=== PATIENT | male | born 1965 | race Caucasian/White ===

== ENCOUNTER 2017-05-03 16:39 | Emergency (ER) | payer OTHER ==
[~2017-05-03] VITALS: Ht 180.3 cm; Wt 81.6 kg
[~2017-05-03 16:39] MED LIST: ATIVAN0.5 MG BC; ATIVAN0.5 MG ORAL; ATIVAN1 MG ORAL; DEPAKOTE PO; DEPAKOTE125 MG PO; KEFLEX500 MG ORAL; LITHIUM CARBON150 MG ORAL; MORPHINE IR15 MG ORAL; MORPHINE SULFATE MC; NITROGLYCERIN0.4 MG SL; NKM; PEPCID20 MG ORAL; PROZAC10 MG ORAL; PROZAC20 MG PO; PROZAC40 MG ORAL; PROZAC40 MG PO; UNOBMED; ZOFRAN ODT4 MG ORAL; ativan; lithium; morphine
[2017-05-03 18:17] VITALS: BP 146/82
[2017-05-03 19:15] VITALS: BP 146/82
--- NOTE | 2017-05-03 20:55 | Emergency Room Report ---
History of Present Illness General Chief Complaint: Pain Source: Patient Present Illness HPI This patient complains of generalized body pain. The patient is brought in by EMS on the street and is homeless. He has no other complaints. Allergies: Coded Allergies: HALOPERIDOL (Unverified Allergy, Unknown, 12/19/14) Patient History Past Medical History: see triage record, HTN, DE, CAD, asthma, other - ETOH abuse Social History: Reports: alcohol use Reviewed Nursing Documentation: PMH: Agreed, PSxH: Agreed Nursing Documentation-PMH Hx Cardiac Problems: Yes - CAD DE Hx Hypertension: Yes Hx Asthma: Yes Hx Cancer: No Hx Neurological Problems: Yes - alcohol abuse Hx Cerebrovascular Accident: Yes Hx Seizures: Yes Review of Systems All Other Systems: negative except mentioned in HPI Physical Exam Vital Signs Date Time Temp Pulse Resp B/P Pulse Ox O2 Delivery O2 Flow Rate FiO2 05/03/17 16:57 98.2 80 20 146/82 98 Room Air Sp02 EP Interpretation: reviewed, normal General Appearance: no apparent distress, alert, GCS 15, non-toxic Head: normocephalic, atraumatic Eyes: bilateral eye PERRL, bilateral eye normal inspection ENT: hearing grossly normal, normal pharynx, no angioedema, normal voice Neck: full range of motion, supple/symm/no masses Respiratory: chest non-tender, lungs clear, normal breath sounds, speaking full sentences Cardiovascular #1: regular rate, rhythm, no edema Gastrointestinal: normal bowel sounds, non tender, soft, non-distended, no guarding, no rebound Rectal: deferred Musculoskeletal: back normal, gait/station normal, normal range of motion, non- tender Neurologic: alert, oriented x3, responsive, motor strength/tone normal, sensory intact, speech normal Psychiatric: judgement/insight normal, memory normal, mood/affect normal, no suicidal/homicidal ideation Skin: normal color, no rash, warm/dry, well hydrated Medical Decision Making Diagnostic Impression: Primary Impression: Pain Additional Impression: Alcohol abuse ER Course This patient got a sandwich and then eloped. Last Vital Signs Date Time Temp Pulse Resp B/P Pulse Ox O2 Delivery O2 Flow Rate FiO2 05/03/17 19:15 98.2 69 20 146/82 98 Room Air Disposition: ELOPED Condition: Stable Referrals: [facility],REFERRING (PCP) ZOILA SELLERS D.O. May 03, 2017 20:55
== END 2017-05-03 19:30 | disposition left against medical advice (07) ==
LOC: EDBD 16:39 → EMR 19:24
DX: R52 Pain, unspecified (principal); F10.10 Alcohol abuse, uncomplicated; I25.10 Atherosclerotic heart disease of native coronary artery without angina pectoris; I25.2 Old myocardial infarction; I10 Essential (primary) hypertension; J45.909 Unspecified asthma, uncomplicated; Z86.73 Personal history of transient ischemic attack (TIA), and cerebral infarction without residual deficits; Z88.8 Allergy status to other drugs, medicaments and biological substances; Z59.0 Homelessness; Z53.21 Procedure and treatment not carried out due to patient leaving prior to being seen by health care provider
CPT/HCPCS: 99283

== ENCOUNTER 2017-05-23 15:02 | Emergency (ER) | payer OTHER ==
[~2017-05-23] VITALS: Ht 172.7 cm; Wt 81.6 kg
--- NOTE | 2017-05-23 15:02 | Emergency Room Report ---
History of Present Illness General Source: Patient, EMS Present Illness HPI 51YOM BIBEMS, found sleeping on street, bystanders called. Intoxicated, unsteady on feet Patient's last drink today Trying to quit drinking No signs of trauma HPI otherwise limited by intoxication Allergies: Coded Allergies: ACETAMINOPHEN (Verified Allergy, Unknown, 05/23/17) HALOPERIDOL (Unverified Allergy, Unknown, 12/19/14) Patient History Past Medical History: none Past Surgical History: none Pertinent Family History: none Social History: Reports: alcohol use Review of Systems All Other Systems: negative except mentioned in HPI Physical Exam Sp02 EP Interpretation: reviewed, normal General Appearance: normal inspection, well appearing, no apparent distress, alert, GCS 15, non-toxic, other - disheveled, +AB Head: normocephalic, atraumatic Eyes: bilateral eye EOMI, bilateral eye PERRL ENT: normal ENT inspection, hearing grossly normal, normal voice Neck: normal inspection, full range of motion, supple, no bony tend Respiratory: normal inspection, lungs clear, normal breath sounds, no respiratory distress, no retraction, no wheezing Gastrointestinal: normal inspection, normal bowel sounds, non tender, soft, no guarding, no hernia Genitourinary: no CVA tenderness Musculoskeletal: normal inspection, back normal, normal range of motion, Carolyn' s Sign negative Neurologic: normal inspection, alert, oriented x3, responsive, 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 Afebrile Just drank today Not withdrawing Slept in ER Ambulated when sober Asked for and received food DC home Status: improved Disposition: HOME, SELF-CARE DAYAMI JOHNSTON M.D. May 23, 2017 15:02
[2017-05-23 15:09] VITALS: BP 117/82
[2017-05-23 17:04] VITALS: BP 121/78
[2017-05-23 17:33] VITALS: BP 121/78
== END 2017-05-23 17:37 | disposition home or self-care (01) ==
LOC: EDBD 15:02 → EMR 15:31
DX: F10.920 Alcohol use, unspecified with intoxication, uncomplicated (principal); Z88.6 Allergy status to analgesic agent; Z88.8 Allergy status to other drugs, medicaments and biological substances
CPT/HCPCS: 99283

== ENCOUNTER 2017-07-06 18:33 | Emergency (ER) | payer OTHER ==
[~2017-07-06] VITALS: Ht 180.3 cm; Wt 86.2 kg
[2017-07-06 19:20] VITALS: BP 114/71
[2017-07-06 21:45] VITALS: BP 117/72
--- NOTE | 2017-07-06 21:52 | Emergency Room Report ---
History of Present Illness General Chief Complaint: Chest Pain Source: Patient, EMS Present Illness HPI The patient is a 51-year-old male brought in by EMS for presumed alcohol intoxication. The patient was found sleeping and states that he complained of chest pain after being woken up by paramedics. Pain is a 10 out of 10 dull ache to the mid chest and does not radiate. No known provoking relieving factors. He does to drinking alcohol but declines to state the quantity. He denies any other symptoms including nausea, vomiting, fever, chills Allergies: Coded Allergies: ACETAMINOPHEN (Verified Allergy, Unknown, 05/23/17) HALOPERIDOL (Unverified Allergy, Unknown, 12/19/14) Patient History Past Medical History: see triage record Pertinent Family History: none Reviewed Nursing Documentation: PMH: Agreed, PSxH: Agreed Nursing Documentation-PMH Past Medical History: No History, Except For Hx Cardiac Problems: No Hx Hypertension: No - HEP A Hx Pacemaker: No Hx Asthma: No Hx COPD: No Hx Diabetes: No Hx Cancer: No Hx Gastrointestinal Problems: No - etoh abuse Hx Dialysis: No Hx Neurological Problems: No Hx Cerebrovascular Accident: No Hx Seizures: No Review of Systems All Other Systems: negative except mentioned in HPI Physical Exam Vital Signs Date Time Temp Pulse Resp B/P (MAP) Pulse Ox O2 Delivery O2 Flow Rate FiO2 07/06/17 18:29 97.9 92 18 114/71 94 Room Air Sp02 EP Interpretation: reviewed, normal General Appearance: no apparent distress, GCS 15, non-toxic Head: normocephalic, atraumatic Eyes: bilateral eye normal inspection, bilateral eye PERRL ENT: hearing grossly normal, normal pharynx, no angioedema, normal voice Neck: full range of motion, supple/symm/no masses Respiratory: chest non-tender, lungs clear, normal breath sounds, speaking full sentences Gastrointestinal: normal bowel sounds, non tender, soft, non-distended, no guarding, no rebound Genitourinary: normal inspection, no CVA tenderness Neurologic: alert, responsive, sensory intact Psychiatric: no suicidal/homicidal ideation Skin: normal color, no rash, warm/dry, well hydrated Medical Decision Making PA Attestation Dr. Spann is my supervising physician. Patient management was discussed with my supervising physician Diagnostic Impression: Primary Impression: Alcohol intoxication Qualified Codes: F10.920 - Alcohol use, unspecified with intoxication, uncomplicated ER Course The patient is a 51-year-old male brought in by EMS for presumed alcohol intoxication DDx considered but not limited to: acute alcohol intoxication, hepatic encephalopathy, drug overdose, hypoglycemia, psychosis, ACS Physical exam: No apparent distress. Patient is lethargic. Head is normocephalic atraumatic. Pupils are equally round and reactive to light The patient is arousable by touch or name. Lungs are clear to auscultation bilaterally. No abnormal tenderness. Abdomen is soft. Otherwise exam is unremarkable The patient is given time to rest in the emergency department. EKG shows NSR at 98 BPM. Compared to old EKG from 03/2016 and shows no acute changes. The patient is able to ambulate well and is asking to leave at this time. The patient is alert and oriented. The patient be discharged home and given ER precautions. Patient was given advice on alcohol addiction EKG Diagnostic Results EP Interpretation: NSR Rate: normal - 98 Rhythm: NSR ST Segments: no acute changes PA Scribe Text EKG was reviewed and read with my supervising physician. EKG from March 2016 compared with to acute changes. Normal rate and rhythm. No acute findings. Last Vital Signs Date Time Temp Pulse Resp B/P (MAP) Pulse Ox O2 Delivery O2 Flow Rate FiO2 07/06/17 18:29 97.9 92 18 114/71 94 Room Air Status: improved Disposition: HOME, SELF-CARE Condition: Improved Patient Instructions: Alcohol Intoxication Additional Instructions: My findings were discussed with the patient. Patient was counseled to seek help for alcohol abuse. Patient is stable for discharge, is alert and oriented, and can ambulate without difficulty. Patient is asked to return to ED if he experiences chest pain, abdominal pain, dizziness, falls down, or for any reason. WILBERTO MENDIOLA Jul 06, 2017 21:52
[2017-07-06 22:36] VITALS: BP 117/72
--- NOTE | 2017-07-09 15:20 | Cardiology Report ---
APPROVED REPORT EKG Measurement Heart [id number] Normal sinus rhythm Low voltage QRS Cannot rule out Anterior infarct, age undetermined Abnormal ECG
== END 2017-07-06 22:36 | disposition home or self-care (01) ==
LOC: EDBD 18:33 → EMR 18:59
DX: F10.129 Alcohol abuse with intoxication, unspecified (principal); Z88.6 Allergy status to analgesic agent; Z88.8 Allergy status to other drugs, medicaments and biological substances
CPT/HCPCS: 93005; 99284

== ENCOUNTER 2017-07-08 13:17 | Emergency (ER) | payer OTHER ==
[~2017-07-08] VITALS: Ht 188 cm; Wt 84.4 kg
--- NOTE | 2017-07-08 13:46 | Emergency Room Report ---
History of Present Illness General Chief Complaint: Alcohol Intoxication Source: Patient Present Illness HPI Patient was initially contacted by police department for sleeping on the sidewalk Upon arrival the patient did complain of chest pain Patient upon arrival is cursing at the triage nurse Reports that he wanted bus tokens to go [place] Currently denies any chest pain denies any back or flank pain denies any abdominal pain Patient reports that he is hungry and requests food Allergies: Coded Allergies: ACETAMINOPHEN (Verified Allergy, Unknown, 05/23/17) HALOPERIDOL (Unverified Allergy, Unknown, 12/19/14) Patient History Past Medical History: see triage record Pertinent Family History: none Reviewed Nursing Documentation: PMH: Agreed, PSxH: Agreed Nursing Documentation-PMH Hx Cardiac Problems: No Hx Hypertension: No - HEP A Hx Pacemaker: No Hx Asthma: No Hx COPD: No Hx Diabetes: No Hx Cancer: No Hx Gastrointestinal Problems: No - etoh abuse Hx Dialysis: No Hx Neurological Problems: No Hx Cerebrovascular Accident: No Hx Seizures: No Review of Systems All Other Systems: negative except mentioned in HPI Physical Exam Vital Signs Date Time Temp Pulse Resp B/P (MAP) Pulse Ox O2 Delivery O2 Flow Rate FiO2 07/08/17 13:13 98.4 82 16 106/82 100 Sp02 EP Interpretation: reviewed, normal General Appearance: well appearing - Have mildly disheveled Head: normocephalic, atraumatic Eyes: bilateral eye PERRL, bilateral eye EOMI ENT: normal pharynx Neck: supple Respiratory: lungs clear Cardiovascular #1: regular rate, rhythm Gastrointestinal: non tender, soft Musculoskeletal: normal inspection Neurologic: alert, oriented x3, responsive Psychiatric: mood/affect normal Skin: no rash Lymphatic: no adenopathy Medical Decision Making ER Course Patient upon arrival was verbal no obvious focal neurological deficits patient is allowed to rest Clinical history is not fully complete at this time Patient is handed to oncoming physician for reevaluation and final disposition Last Vital Signs Date Time Temp Pulse Resp B/P (MAP) Pulse Ox O2 Delivery O2 Flow Rate FiO2 07/08/17 13:13 98.4 82 16 106/82 100 Status: unchanged Signed Out To: on coming physician MIKE COBB D.O. Jul 08, 2017 13:46
[2017-07-08 13:51] VITALS: BP 106/82
[2017-07-08 17:44] VITALS: BP 102/67
[2017-07-08 19:01] VITALS: BP 102/67
--- NOTE | 2017-07-11 19:39 | Cardiology Report ---
APPROVED REPORT EKG Measurement Heart [id number] Normal sinus rhythm Low voltage QRS Borderline ECG
== END 2017-07-08 19:07 | disposition home or self-care (01) ==
LOC: EDBD 13:17 → EMR 14:07
DX: R07.9 Chest pain, unspecified (principal); R45.1 Restlessness and agitation; Z88.8 Allergy status to other drugs, medicaments and biological substances; Z86.19 Personal history of other infectious and parasitic diseases
CPT/HCPCS: 93005; 99283

== ENCOUNTER 2017-07-09 21:10 | Emergency (ER) | payer OTHER ==
[~2017-07-09] VITALS: Ht 177.8 cm; Wt 81.6 kg
[2017-07-10 01:59] VITALS: BP 0/0
--- NOTE | 2017-07-11 16:22 | Emergency Room Report ---
History of Present Illness General Chief Complaint: Alcohol Intoxication Source: EMS Present Illness HPI Patient eloped without being seen by me Allergies: Coded Allergies: ACETAMINOPHEN (Verified Allergy, Unknown, 05/23/17) HALOPERIDOL (Unverified Allergy, Unknown, 12/19/14) Nursing Documentation-PMH Past Medical History: No History, Except For Hx Hypertension: No - HEP A Hx Pacemaker: No Hx Asthma: No Hx COPD: No Hx Diabetes: No Hx Cancer: No Hx Gastrointestinal Problems: No - etoh abuse Hx Dialysis: No Hx Neurological Problems: No Hx Cerebrovascular Accident: No Hx Seizures: No Physical Exam Vital Signs Date Time Temp Pulse Resp B/P (MAP) Pulse Ox O2 Delivery O2 Flow Rate FiO2 07/09/17 20:51 98.8 95 20 110/65 95 Room Air Medical Decision Making Diagnostic Impression: Primary Impression: eloped Last Vital Signs Date Time Temp Pulse Resp B/P (MAP) Pulse Ox O2 Delivery O2 Flow Rate FiO2 07/10/17 01:59 0/0 07/09/17 20:51 98.8 95 20 95 Room Air Disposition: ELOPED Condition: Stable Referrals: [facility]OS[facility]/,REFERRING (PCP) Tyron Willis M.D. Jul 11, 2017 16:22
== END 2017-07-09 21:30 | disposition left against medical advice (07) ==
LOC: EDBD 21:10 → EMR 21:30
DX: F10.129 Alcohol abuse with intoxication, unspecified (principal); Z53.21 Procedure and treatment not carried out due to patient leaving prior to being seen by health care provider; Z88.6 Allergy status to analgesic agent
CPT/HCPCS: 99283

== ENCOUNTER 2017-12-26 10:51 | Emergency (ER) | payer OTHER ==
[~2017-12-26] VITALS: Ht 188 cm; Wt 83.5 kg
[2017-12-26 11:10] VITALS: BP 124/87
[2017-12-26] MEDS ORDERED: Lidocaine 2% Visc 15ml soln ORAL ONE (11:30)
[2017-12-26] MEDS ORDERED: Mylanta II UD 30ml ORAL ONE (11:30)
[2017-12-26] MEDS ORDERED: Dicyclomine HCl 10mg/5ml oral soln ORAL ONE (11:30)
[2017-12-26 12:28] LABS: ANION GAP 10 mmol/L (5-15); BLOOD UREA NITROGEN 6 mg/dL (7-18); CALCIUM 8.3 MG/DL (8.5-10.1); CARBON DIOXIDE 25 MMOL/L (21-32); CHLORIDE 92 MMOL/L (98-107); CREATININE 0.7 MG/DL (0.55-1.30); POTASSIUM 3.7 MMOL/L (3.5-5.1); SODIUM 127 MMOL/L (136-145)
[2017-12-26 12:32] LABS: ALANINE AMINOTRANSFERASE 133 U/L (12-78); ALBUMIN 3.6 G/DL (3.4-5.0); ALBUMIN/GLOBULIN RATIO 0.7 (1.0-2.7); ALKALINE PHOSPHATASE 107 U/L (46-116); ASPARTATE AMINO TRANSFERASE 102 U/L (15-37); BILIRUBIN,TOTAL 0.4 MG/DL (0.2-1.0)
--- NOTE | 2017-12-26 13:43 | Emergency Room Report ---
History of Present Illness General Chief Complaint: Pain Source: Patient, EMS Present Illness HPI Patient presents with complaints of left upper quadrant pain Denies any nausea vomiting Describes the pain as burning sensation Denies any chest pain or shortness of breath denies any back or flank pain patient is an alcoholic denies any palpitations or withdrawal symptoms Patient reports that he needs a prescription for nitroglycerin He is supposed to have the prescription however has not been able to obtain one Allergies: Coded Allergies: ACETAMINOPHEN (Verified Allergy, Unknown, 05/23/17) HALOPERIDOL (Unverified Allergy, Unknown, 12/19/14) Patient History Past Medical History: see triage record Pertinent Family History: none Reviewed Nursing Documentation: PMH: Agreed, PSxH: Agreed Nursing Documentation-PMH Past Medical History: No History, Except For Hx Cardiac Problems: Yes - irreg heartrate Hx Hypertension: Yes Hx Pacemaker: No Hx Asthma: No Hx COPD: No Hx Diabetes: No Hx Cancer: No Hx Gastrointestinal Problems: No - etoh abuse Hx Dialysis: No History Of Psychiatric Problem: Yes - bipolar schizophrenia Hx Neurological Problems: No Hx Cerebrovascular Accident: No Hx Seizures: No Review of Systems All Other Systems: negative except mentioned in HPI Physical Exam Vital Signs Date Time Temp Pulse Resp B/P (MAP) Pulse Ox O2 Delivery O2 Flow Rate FiO2 12/26/17 10:37 97.6 76 18 124/87 99 Room Air 97.5 Sp02 EP Interpretation: reviewed, normal General Appearance: no apparent distress - Patient appeildly disheveled reports being homeless Head: normocephalic, atraumatic Eyes: bilateral eye PERRL, bilateral eye EOMI ENT: hearing grossly normal Neck: supple Respiratory: lungs clear, normal breath sounds Cardiovascular #1: normal peripheral pulses, regular rate, rhythm Gastrointestinal: non tender, soft Musculoskeletal: normal inspection Neurologic: alert, oriented x3, responsive Skin: normal color, no rash Lymphatic: no adenopathy Medical Decision Making Diagnostic Impression: Primary Impression: Abdominal Pain ER Course With the history exam and presentation, multiple differentials considered, including but not limited to appendicitis, gastritis, cholecystitis, diverticulitis Given the patient's complaints of location and description of pain baseline blood work for liver and pancreatic ideology or entertained All within normal limits Patient's sodium was mildly low otherwise no signs of acute hyponatremia clinically Patient also has baseline findings regarding LFTs likely secondary to alcohol disease Patient was explained that his blood pressure is 120/70 For prescription of other medications he requires close follow-up with primary physician or outpatient clinic And is otherwise stable for close outpatient follow-up Labs Test 12/26/17 12:05 Sodium Level 127 MMOL/L (136-145) Potassium Level 3.7 MMOL/L (3.5-5.1) Chloride Level 92 MMOL/L (98-107) Carbon Dioxide Level 25 MMOL/L (21-32) Anion Gap 10 mmol/L (5-15) Blood Urea Nitrogen 6 mg/dL (7-18) Creatinine 0.7 MG/DL (0.55-1.30) Estimat Glomerular Filtration Rate > 60 mL/min (>60) Glucose Level 87 MG/DL (74-106) Calcium Level 8.3 MG/DL (8.5-10.1) Total Bilirubin 0.4 MG/DL (0.2-1.0) Aspartate Amino Transf (AST/SGOT) 102 U/L (15-37) Alanine Aminotransferase (ALT/SGPT) 133 U/L (12-78) Alkaline Phosphatase 107 U/L (46-116) Total Protein 8.6 G/DL (6.4-8.2) Albumin 3.6 G/DL (3.4-5.0) Globulin 5.0 g/dL Albumin/Globulin Ratio 0.7 (1.0-2.7) Lipase 122 U/L (73-393) Last Vital Signs Date Time Temp Pulse Resp B/P (MAP) Pulse Ox O2 Delivery O2 Flow Rate FiO2 12/26/17 10:37 97.6 76 18 124/87 99 Room Air 97.5 Status: improved Disposition: HOME, SELF-CARE Condition: Improved Patient Instructions: Alcohol Abuse and Nutrition, Abdominal Pain, Adult, Easy- to-Read Additional Instructions: Patient is provided with the discharge instructions notified to follow up with primary doctor in the next 2-3 days otherwise return to the er with any worsening symptoms. Please note that this report is being documented using [employer] technology. This can lead to erroneous entry secondary to incorrect interpretation by the dictating instrument. Princess Spann DO Dec 26, 2017 13:42
[2017-12-26 14:35] VITALS: BP 124/87
== END 2017-12-26 14:35 | disposition home or self-care (01) ==
LOC: EDBD 10:51 → EMR 11:30
DX: R10.12 Left upper quadrant pain (principal); Z88.6 Allergy status to analgesic agent; Z88.8 Allergy status to other drugs, medicaments and biological substances; I10 Essential (primary) hypertension; F10.10 Alcohol abuse, uncomplicated; F31.9 Bipolar disorder, unspecified; F20.9 Schizophrenia, unspecified; Z59.0 Homelessness
CPT/HCPCS: 36415; 80053; 83690; 99282

== ENCOUNTER 2018-01-07 21:06 | Emergency (ER) | payer OTHER ==
[~2018-01-07] VITALS: Ht 175.3 cm; Wt 86.2 kg
--- NOTE | 2018-01-07 21:12 | Emergency Room Report ---
History of Present Illness General Chief Complaint: Abdominal Pain Source: Patient, Medical Record, EMS Present Illness HPI This is a 52-year-old male who is an alcoholic. He is well-known to this ED and took it to myself. He's been here multiple times with the same complaint of abdominal pain. Usually he is very intoxicated. He was just at another hospital day or 2 ago. He presents with abdominal pain. Pain is diffuse in nature but mostly epigastric. No nausea no vomiting. No fever or chills. Only had 4 drinks tonight. Denies any other complaint. Pain is 10 out of 10. No radiation. Allergies: Coded Allergies: ACETAMINOPHEN (Verified Allergy, Unknown, 05/23/17) HALOPERIDOL (Unverified Allergy, Unknown, 12/19/14) Patient History Past Medical History: see triage record, old chart reviewed Past Surgical History: other Pertinent Family History: none Social History: Reports: alcohol use Immunizations: other Reviewed Nursing Documentation: PMH: Agreed; PSxH: Agreed Nursing Documentation-PMH Hx Cardiac Problems: No Hx Hypertension: No - HEP A Hx Pacemaker: No Hx Asthma: No Hx COPD: No Hx Diabetes: No Hx Cancer: No Hx Gastrointestinal Problems: No - etoh abuse Hx Dialysis: No Hx Neurological Problems: No Hx Cerebrovascular Accident: No Hx Seizures: No Review of Systems Eye: Denies: eye pain, blurred vision ENT: Denies: ear pain, nose congestion, throat swelling Respiratory: Denies: cough, shortness of breath Cardiovascular: Denies: chest pain, palpitations Gastrointestinal: Reports: abdominal pain; Denies: diarrhea, nausea, vomiting Musculoskeletal: Denies: back pain, joint pain Skin: Denies: rash Neurological: Denies: headache, numbness Endocrine: Denies: increased thirst, increased urine Hematologic/Lymphatic: Denies: easy bruising All Other Systems: negative except mentioned in HPI Physical Exam Vital Signs Date Time Temp Pulse Resp B/P (MAP) Pulse Ox O2 Delivery O2 Flow Rate FiO2 01/07/18 21:02 98.2 92 18 136/94 98 Room Air 98.2 vitals herson Sp02 EP Interpretation: reviewed, normal General Appearance: well appearing, no apparent distress, alert Head: normocephalic, atraumatic Eyes: bilateral eye PERRL, bilateral eye EOMI ENT: hearing grossly normal, normal pharynx Neck: full range of motion, supple, no meningismus Respiratory: chest non-tender, lungs clear, normal breath sounds Cardiovascular #1: regular rate, rhythm, no murmur Gastrointestinal: normal bowel sounds, no mass, no organomegaly, no bruit, non- distended, tenderness - upper quadrant, mostly epigastric. When I was auscultating and pushing on my stethoscope, he has no pain Musculoskeletal: back normal, gait/station normal, normal range of motion Psychiatric: mood/affect normal Skin: warm/dry Medical Decision Making Diagnostic Impression: Primary Impression: Alcohol abuse Additional Impression: Acute alcoholic hepatitis ER Course Patient with abdominal pain from alcohol abuse. Could be accommodation of alcoholic gastritis and colic hepatitis. Patient is otherwise stable. Tolerating by mouth here. We'll discharge home. No criteria for 5150. Lab Results Impression labs unremarkable Last Vital Signs Date Time Temp Pulse Resp B/P (MAP) Pulse Ox O2 Delivery O2 Flow Rate FiO2 01/07/18 21:02 98.2 92 18 136/94 98 Room Air 98.2 Status: improved Disposition: HOME, SELF-CARE Condition: Stable Scripts Omeprazole Magnesium (PRILOSEC OTC) 20 Mg Tablet. 20 MG ORAL DAILY, #30 TAB Prov: HUBER DORANTES M.D. 01/07/18 Patient Instructions: Abdominal Pain, Adult Additional Instructions: Follow-up your doctor in 7 days. Stop drinking alcohol. Go to rehabilitation. Return of worse. HUBER DORANTES M.D. Jan 07, 2018 21:11
[2018-01-07] MEDS ORDERED: Pantoprazole Inj IV ONE (21:15)
[2018-01-07 21:30] VITALS: BP 136/94
[2018-01-07 21:50] LABS: BASOPHILS % (AUTO) 0.7 % (0.0-2.0); EOSINOPHILS % (AUTO) 1.1 % (0.0-3.0); HEMATOCRIT 38.5 % (42.0-52.0); HEMOGLOBIN 13.1 G/DL (14.2-18.0); LYMPHOCYTES % (AUTO) 23.9 % (20.0-45.0); MEAN CORPUSCULAR VOLUME 84 FL (80-99); MONOCYTES % (AUTO) 17.8 % (1.0-10.0); NEUTROPHILS % (AUTO) 56.6 % (45.0-75.0); PLATELET COUNT 134 K/UL (150-450); RED BLOOD COUNT 4.57 M/UL (4.70-6.10); RED CELL DISTRIBUTION WIDTH 14.5 % (11.6-14.8); WHITE BLOOD COUNT 5.6 K/UL (4.8-10.8)
[2018-01-07 21:53] LABS: APPEARANCE,URINE CLEAR; BILIRUBIN, URINE NEGATIVE (NEGATIVE); COLOR,URINE PALE YELLOW; GLUCOSE, URINE (UA) NEGATIVE (NEGATIVE); KETONES,URINE NEGATIVE (NEGATIVE); LEUKOCYTE ESTERASE ,URINE NEGATIVE (NEGATIVE); NITRITE,URINE NEGATIVE (NEGATIVE); PH,URINE 6 (4.5-8.0); PROTEIN,URINE NEGATIVE (NEGATIVE); UROBILINOGEN,URINE NORMAL MG/DL (0.0-1.0)
[2018-01-07 22:09] LABS: ANION GAP 7 mmol/L (5-15); BLOOD UREA NITROGEN 12 mg/dL (7-18); CALCIUM 8.2 MG/DL (8.5-10.1); CARBON DIOXIDE 26 MMOL/L (21-32); CHLORIDE 97 MMOL/L (98-107); CREATININE 0.8 MG/DL (0.55-1.30); SODIUM 130 MMOL/L (136-145)
[2018-01-07 22:13] LABS: ALANINE AMINOTRANSFERASE 91 U/L (12-78); ALBUMIN 3.5 G/DL (3.4-5.0); ALBUMIN/GLOBULIN RATIO 0.7 (1.0-2.7); ALKALINE PHOSPHATASE 102 U/L (46-116); ASPARTATE AMINO TRANSFERASE 103 U/L (15-37); BILIRUBIN,TOTAL 0.5 MG/DL (0.2-1.0)
[2018-01-07] MEDS ORDERED: PRILOSEC OTC20 MG ORAL (22:20)
[2018-01-07 22:30] VITALS: BP 132/91
== END 2018-01-07 22:30 | disposition home or self-care (01) ==
LOC: EDBD 21:06 → EMR 22:04
DX: F10.10 Alcohol abuse, uncomplicated (principal); Z88.6 Allergy status to analgesic agent
CPT/HCPCS: 36415; 80053; 81003; 83690; 85025; 96374; 99284; C9113

== ENCOUNTER 2018-01-15 15:41 | Emergency (ER) | payer OTHER ==
[~2018-01-15] VITALS: Ht 172.7 cm; Wt 79.4 kg
[~2018-01-15 15:41] MED LIST changes: +PRILOSEC OTC20 MG ORAL
[2018-01-15 16:11] VITALS: BP 140/80
[2018-01-15 16:19] LABS: HEMATOCRIT 39.2 % (42.0-52.0); HEMOGLOBIN 13.3 G/DL (14.2-18.0); MEAN CORPUSCULAR VOLUME 84 FL (80-99); PLATELET COUNT 220 K/UL (150-450); RED BLOOD COUNT 4.67 M/UL (4.70-6.10); RED CELL DISTRIBUTION WIDTH 13.7 % (11.6-14.8); WHITE BLOOD COUNT 5.6 K/UL (4.8-10.8)
[2018-01-15 16:28] LABS: ANION GAP 8 mmol/L (5-15); BLOOD UREA NITROGEN 4 mg/dL (7-18); CARBON DIOXIDE 27 MMOL/L (21-32); CHLORIDE 94 MMOL/L (98-107); CREATININE 0.8 MG/DL (0.55-1.30); POTASSIUM 3.5 MMOL/L (3.5-5.1); SODIUM 129 MMOL/L (136-145)
[2018-01-15 16:40] LABS: INR 1.1 (0.9-1.1)
[2018-01-15 16:41] LABS: ALANINE AMINOTRANSFERASE 77 U/L (12-78); ALBUMIN 3.3 G/DL (3.4-5.0); ALBUMIN/GLOBULIN RATIO 0.7 (1.0-2.7); ALKALINE PHOSPHATASE 100 U/L (46-116); ASPARTATE AMINO TRANSFERASE 85 U/L (15-37); BILIRUBIN,TOTAL 0.3 MG/DL (0.2-1.0); CKMB 12.3 NG/ML (0.0-3.6); CREATINE KINASE 326 U/L (26-308)
[2018-01-15 17:30] VITALS: BP 111/73
[2018-01-15] MEDS ORDERED: Thiamine HCl 100 MG in D5W 55 ML IVPB ONE (17:30)
[2018-01-15 18:08] VITALS: BP 106/69
--- NOTE | 2018-01-15 21:48 | Emergency Room Report ---
History of Present Illness General Chief Complaint: Altered Level of Consciousness Present Illness HPI Patient is a 52-year-old male who presented after increased altered mental status. Patient had been found lying in the street. Patient had been brought in by EMS. Patient prior history of alcohol abuse. She is markedly limited by patient's mental status and poor cooperation. (Dioni Fajardo) Allergies: Coded Allergies: ACETAMINOPHEN (Verified Allergy, Unknown, 05/23/17) HALOPERIDOL (Unverified Allergy, Unknown, 12/19/14) Patient History Past Medical History: see triage record Reviewed Nursing Documentation: PMH: Agreed; PSxH: Agreed (Dioni Fajardo) Nursing Documentation-PMH Hx Hypertension: Yes Hx Pacemaker: No Hx Asthma: No Hx COPD: No Hx Diabetes: No Hx Cancer: No Hx Gastrointestinal Problems: No - etoh abuse Hx Dialysis: No Hx Neurological Problems: No Hx Cerebrovascular Accident: No Hx Seizures: No (Dioni Fajardo) Review of Systems All Other Systems: negative except mentioned in HPI (Dioni Fajardo) Physical Exam Vital Signs Date Time Temp Pulse Resp B/P (MAP) Pulse Ox O2 Delivery O2 Flow Rate FiO2 01/15/18 15:38 97.4 86 16 140/80 98 Room Air 97.3 Sp02 EP Interpretation: reviewed, normal General Appearance: normal inspection, obese, Chronically Ill Head: other - forehead abrasion ENT: normal ENT inspection, hearing grossly normal, normal voice Neck: normal inspection, full range of motion, supple, no bony tend Respiratory: normal inspection, lungs clear, normal breath sounds, no respiratory distress, no retraction, no wheezing Cardiovascular #1: regular rate, rhythm, no edema Gastrointestinal: normal inspection, normal bowel sounds, non tender, soft, no guarding, no hernia Genitourinary: no CVA tenderness Musculoskeletal: normal inspection, back normal, normal range of motion Neurologic: normal inspection, alert, responsive, other - slurred speech Psychiatric: normal inspection, mood/affect normal Skin: no rash, other - forehead abrasion (Dioni Fajardo) Medical Decision Making Diagnostic Impression: Primary Impression: Acute alcoholic intoxication Qualified Codes: F10.929 - Alcohol use, unspecified with intoxication, unspecified Additional Impression: Minor head injury ER Course Patient signed out to me by Dr Spann Patient alert and oriented now Ambulating with steady gait Asked for, received food Provided sneakers as he arrived shoeless Asked for, received bus token Counseled patient on ETOH abuse patient denies known Medical problems; denies chest pain, SOB, abd pain, fever/ chills, headache Reviewed labs, imaging - no acute trauma Elevated ETOH level Denies SI, HI, AVH DC (DAYAMI JOHNSTON M.D.) Last Vital Signs Date Time Temp Pulse Resp B/P (MAP) Pulse Ox O2 Delivery O2 Flow Rate FiO2 01/15/18 18:08 16 106/69 98 Room Air 01/15/18 17:30 97.3 97.3 01/15/18 15:38 86 Status: improved (Dioni Fajardo) Status: improved (DAYAMI JOHNSTON M.D.) Disposition: HOME, SELF-CARE Referrals: [facility],REFERRING (PCP) Dioni Fajardo Jan 15, 2018 21:48 DAYAMI JOHNSTON M.D. Jan 16, 2018 06:49
[2018-01-15 22:37] VITALS: BP 98/49
[2018-01-16 04:50] VITALS: BP 95/57
[2018-01-16 07:04] VITALS: BP 108/73
[2018-01-16 07:08] VITALS: BP 108/73
--- NOTE | 2018-01-16 10:53 | Diagnostic Imaging Report ---
Indication: Headache and head trauma Technique: Contiguous 5 mm thick transaxial imaging of the head obtained in a Siemens Sensation [address] scanner. Soft tissue and bone windows generated. Automatic Exposure Control was utilized. Total Dose length Product (DLP): 1672.[address] Dose Index Volume (CTDIvol): 70.38,16.24 mGy Comparison: 09/30/2015 Findings: Interval left frontal craniotomy has been performed. There is encephalomalacia of the bifrontal regions worse on the left. Moderate atrophy of the brain also noted with prominence of the sulci ventricles and basal cisterns. There is no mass effect or edema definitely seen. There is no evidence of acute intracranial hemorrhage. There is an old fracture of the medial wall of the left orbit which was noted previously also. IMPRESSION: No definite mass effect, edema or acute intracranial hemorrhage. Left frontal craniotomy. Bifrontal encephalomalacia left worse than right. Moderate atrophy of the brain [facility] has communicated the preliminary results to the Emergency Department. Their findings are largely concordant with this report. The CT scanner at [facility] is accredited by the [employer] and the scans are performed using dose optimization techniques as appropriate to a performed exam including Automatic Exposure control.
--- NOTE | 2018-01-16 10:56 | Diagnostic Imaging Report ---
Indication: Neck pain. Trauma Technique: Continuous helical imaging of the cervical spine was obtained transaxially from the skull base to the upper thoracic spine. 2-D coronal and sagittal reformatted images were obtained. Automatic Exposure Control was utilized. Total Dose length Product (DLP): Refer to CT head mGycm CT Dose Index Volume (CTDIvol): Refer to CT head mGy Comparison: 04/23/2014 Findings: There is no acute fracture or malalignment identified. There is no soft tissue swelling identified. Moderate uncovertebral arthritis is demonstrated at multiple levels. Some of the intervertebral discs show narrowing and osteophytes. Some narrowing of the neural foramina noted due to uncovertebral arthritis. Impression: No acute injury Moderate spondylosis [facility] has communicated the preliminary results to the Emergency Department. Their findings are largely concordant with this report. The CT scanner at [facility] is accredited by the [employer] and the scans are performed using dose optimization techniques as appropriate to a performed exam including Automatic Exposure control.
--- NOTE | 2018-01-16 11:45 | Diagnostic Imaging Report ---
Indication: Dyspnea Comparison: 04/08/2016 A single view chest radiograph was obtained. Findings: No definite infiltrate or pulmonary vascular congestion identified. The heart is enlarged. The aorta is mildly enlarged consistent with atherosclerotic vascular disease. There is an old right acromioclavicular separation. Impression: No acute disease
--- NOTE | 2018-01-19 17:39 | Cardiology Report ---
APPROVED REPORT EKG Measurement Heart [id number] Normal sinus rhythm Junctional ST depression, probably normal Borderline ECG
== END 2018-01-16 07:08 | disposition home or self-care (01) ==
LOC: EDBD 15:41 → EMR 15:49
DX: F10.129 Alcohol abuse with intoxication, unspecified (principal); S00.81XA Abrasion of other part of head, initial encounter; W19.XXXA Unspecified fall, initial encounter; Y92.480 Sidewalk as the place of occurrence of the external cause; I10 Essential (primary) hypertension; R51 Headache; M54.2 Cervicalgia; M47.819 Spondylosis without myelopathy or radiculopathy, site unspecified; Z88.6 Allergy status to analgesic agent; Z88.8 Allergy status to other drugs, medicaments and biological substances; G93.89 Other specified disorders of brain
CPT/HCPCS: 36415; 70450; 71045; 72125; 80053; 80329; 82550; 82553; 82962; 85007; 85025; 85610; 85730; 93005; 96374; 99284

== ENCOUNTER 2018-03-09 20:58 | Emergency (ER) | payer OTHER ==
[~2018-03-09] VITALS: Ht 188 cm; Wt 84.4 kg
[2018-03-09 21:10] VITALS: BP 110/68
[2018-03-09 22:30] VITALS: BP 115/70
[2018-03-10 00:05] VITALS: BP 110/68
[2018-03-10 01:43] VITALS: BP 112/66
--- NOTE | 2018-03-10 01:47 | Emergency Room Report ---
History of Present Illness General Chief Complaint: Alcohol Intoxication Source: Patient Present Illness HPI 52-year-old male history of EtOH abuse p/w alcohol intoxication. Patient admits to drinking alcohol, cannot quantify amount. He was telling EMS that he just has generalized pain. Now he is not in any pain to sleeping comfortably but not providing any history. No trauma Allergies: Coded Allergies: ACETAMINOPHEN (Verified Allergy, Unknown, 05/23/17) HALOPERIDOL (Unverified Allergy, Unknown, 12/19/14) Patient History Past Medical History: see triage record Past Surgical History: none Pertinent Family History: none Reviewed Nursing Documentation: PMH: Agreed; PSxH: Agreed Nursing Documentation-PMH Hx Hypertension: Yes Hx Pacemaker: No Hx Asthma: No Hx COPD: No Hx Diabetes: No Hx Cancer: No Hx Gastrointestinal Problems: No - etoh abuse Hx Dialysis: No Hx Neurological Problems: No Hx Cerebrovascular Accident: No Hx Seizures: No Review of Systems All Other Systems: limited Physical Exam Vital Signs Date Time Temp Pulse Resp B/P (MAP) Pulse Ox O2 Delivery O2 Flow Rate FiO2 03/09/18 21:05 99.5 100 16 94/64 96 Room Air 99.5 Sp02 EP Interpretation: reviewed, normal General Appearance: other - intoxicated and sleeping Head: normocephalic, atraumatic Eyes: bilateral eye normal inspection, bilateral eye PERRL, bilateral eye EOMI ENT: normal ENT inspection, normal pharynx, normal voice, moist mucus membranes Neck: normal inspection, full range of motion, supple Respiratory: normal inspection, lungs clear, normal breath sounds, no respiratory distress, no retraction, no wheezing, chest symmetrical Cardiovascular #1: normal inspection, regular rate, rhythm, normal capillary refill Cardiovascular #2: 2+ radial (R), 2+ radial (L) Gastrointestinal: normal inspection, non tender, soft, non-distended, no guarding Genitourinary: no CVA tenderness Musculoskeletal: normal inspection, back normal, normal range of motion, non- tender Neurologic: other - intox, when trying to wake up, moans, moves all ext spont Psychiatric: other Skin: normal inspection, normal color, no rash, warm/dry, well hydrated, normal turgor Medical Decision Making Diagnostic Impression: Primary Impression: Alcohol intoxication ER Course 52-year-old male with alcohol intoxication DDX: Likely alcohol intoxication No signs of trauma Plan: Pending sobriety ER course: Patient has remained stable during ED stay. Has been sleeping comfortably now clinically sober Disposition: Patient is to be discharged to home. Patient is instructed to follow up with their primary care doctor within 5 days. Please note that this Emergency Department Report was dictated using [employer] technology software, occasionally this can lead to erroneous entry secondary to interpretation by the dictation equipment Last Vital Signs Date Time Temp Pulse Resp B/P (MAP) Pulse Ox O2 Delivery O2 Flow Rate FiO2 03/10/18 01:43 70 16 112/66 97 Room Air 03/09/18 21:10 98.7 98.7 Disposition: HOME, SELF-CARE Condition: Improved Referrals: NON PHYSICIAN (PCP) Patient Instructions: Alcohol Intoxication, [id number] Tyron Willis M.D. March 10, 2018 01:47
[2018-03-10 03:38] VITALS: BP 120/72
[2018-03-10 05:06] VITALS: BP 110/65
[2018-03-10 05:59] VITALS: BP 110/65
== END 2018-03-10 05:59 | disposition home or self-care (01) ==
LOC: EDBD 20:58 → EMR 21:40
DX: F10.129 Alcohol abuse with intoxication, unspecified (principal); I10 Essential (primary) hypertension; Z88.6 Allergy status to analgesic agent; Z88.8 Allergy status to other drugs, medicaments and biological substances
CPT/HCPCS: 99283

== ENCOUNTER 2018-03-24 23:42 | Emergency (ER) | payer OTHER ==
[~2018-03-24] VITALS: Ht 182.9 cm; Wt 84.4 kg
[2018-03-24 23:47] VITALS: BP 138/81
--- NOTE | 2018-03-25 00:06 | Emergency Room Report ---
History of Present Illness General Chief Complaint: Alcohol Intoxication Source: Patient, Medical Record, EMS Present Illness HPI This is a 52-year-old male who is well-known to us. He has a history of alcohol abuse and intoxication with multiple ER visits. Patient presents with chief complaint of alcohol intoxication and weakness. He [address] He's been drinking tonight. No trauma. No abdominal pain. No fever chills. He said he does want a place to sleep. Allergies: Coded Allergies: ACETAMINOPHEN (Verified Allergy, Unknown, 05/23/17) HALOPERIDOL (Unverified Allergy, Unknown, 12/19/14) Patient History Past Medical History: see triage record, old chart reviewed, seizures Past Surgical History: other Pertinent Family History: none Social History: Reports: alcohol use Immunizations: other Reviewed Nursing Documentation: PMH: Agreed; PSxH: Agreed Nursing Documentation-PMH Past Medical History: No History, Except For Hx Hypertension: Yes Hx Pacemaker: No Hx Asthma: No Hx COPD: No Hx Diabetes: No Hx Cancer: No Hx Dialysis: No Hx Neurological Problems: No Hx Cerebrovascular Accident: No Hx Seizures: No Review of Systems Eye: Denies: eye pain, blurred vision ENT: Denies: ear pain, nose congestion, throat swelling Respiratory: Denies: cough, shortness of breath Cardiovascular: Denies: chest pain, palpitations Gastrointestinal: Denies: abdominal pain, diarrhea, nausea, vomiting Musculoskeletal: Denies: back pain, joint pain Skin: Denies: rash Neurological: Denies: headache, numbness Endocrine: Denies: increased thirst, increased urine Hematologic/Lymphatic: Denies: easy bruising All Other Systems: negative except mentioned in HPI Physical Exam Vital Signs Date Time Temp Pulse Resp B/P (MAP) Pulse Ox O2 Delivery O2 Flow Rate FiO2 03/24/18 23:37 97.1 89 18 145/89 98 Room Air 97.2 vitals unremarkable Sp02 EP Interpretation: reviewed, normal General Appearance: well appearing, no apparent distress, alert, other - intoxicated Head: normocephalic, atraumatic Eyes: bilateral eye PERRL, bilateral eye EOMI ENT: hearing grossly normal, normal pharynx Neck: full range of motion, supple, no meningismus Respiratory: chest non-tender, lungs clear, normal breath sounds Cardiovascular #1: regular rate, rhythm, no murmur Gastrointestinal: normal bowel sounds, non tender, no mass, no organomegaly, no bruit, non-distended Musculoskeletal: back normal, gait/station normal, normal range of motion Psychiatric: mood/affect normal Skin: warm/dry Medical Decision Making Diagnostic Impression: Primary Impression: Acute alcoholic intoxication Qualified Codes: F10.929 - Alcohol use, unspecified with intoxication, unspecified ER Course Patient presents with alcohol intoxication. No trauma to warrant x-ray or CT scan. We'll watch him until sobriety. Afterward will discharge. Last Vital Signs Date Time Temp Pulse Resp B/P (MAP) Pulse Ox O2 Delivery O2 Flow Rate FiO2 03/24/18 23:37 97.1 89 18 145/89 98 Room Air 97.2 Status: improved Disposition: HOME, SELF-CARE Condition: Stable Referrals: NON PHYSICIAN (PCP) Patient Instructions: Alcohol Intoxication, [id number] Additional Instructions: stop drinking alcohol. Go to rehab. Follow up with your doctor in a week. Return of worse. HUBER DORANTES M.D. Mar 25, 2018 00:06
[2018-03-25 02:53] VITALS: BP 134/77
[2018-03-25 05:30] VITALS: BP 134/77
== END 2018-03-25 05:33 | disposition home or self-care (01) ==
LOC: EDBD 23:42 → EMR 23:59
DX: F10.929 Alcohol use, unspecified with intoxication, unspecified (principal); Z88.6 Allergy status to analgesic agent; I10 Essential (primary) hypertension
CPT/HCPCS: 99284

== ENCOUNTER 2019-04-12 22:28 | Emergency (ER) | payer OTHER ==
[~2019-04-12] VITALS: Ht 172.7 cm; Wt 81.6 kg
[2019-04-12 22:30] VITALS: BP 130/90
--- NOTE | 2019-04-12 22:30 | NUR ---
ED Nurse Note: pt RICHARD serrano d/t etoh. pt is restless and defacted on himself.
--- NOTE | 2019-04-12 22:31 | NUR ---
ED Nurse Note: BILATERAL LOWER EXTREMITY EDEMA NOTED. PT HAS CANE AT BEDSIDE.
--- NOTE | 2019-04-12 22:35 | NUR ---
ED Nurse Note: Iv line established and blood and urine specimen sent to lab. pt has been cleaned and dressed. bed set at lowest postition x 2 sidereails, seizure precaution has been initiated.
[2019-04-12] MEDS ORDERED: Thiamine HCl 100 MG in D5W 55 ML IV ONE (22:45)
--- NOTE | 2019-04-12 23:00 | Emergency Room Report ---
History of Present Illness General Chief Complaint: Alcohol Intoxication Source: Patient, EMS Present Illness HPI Patient is brought in by EMS. Concerns passerby's summoned them because the patient was less responsive and smelled bad. He is a chronic alcoholic and does not take care of himself. He is complaining about chest pain at this time. He says it feels like a horse sitting on his chest. He denies taking medication for this. He denies seizures, vomiting blood, abdominal pain. The patient is been stooling on himself and there has been no diarrhea or melena. He has chronic ulcers of his lower extremities. He believes his tetanus is up- to-date. The patient denies suicidal ideation but says he just does not care. Not answering many questions. Allergies: Coded Allergies: ACETAMINOPHEN (Verified Allergy, Unknown, 05/23/17) HALOPERIDOL (Unverified Allergy, Unknown, 12/19/14) Patient History Limited by: medical condition - refuses to answer Past Medical History: see triage record Social History: Reports: smoking, alcohol use Social History Narrative On the streets Reviewed Nursing Documentation: PMH: Agreed; PSxH: Agreed Nursing Documentation-PMH Hx Cardiac Problems: Yes Hx Hypertension: Yes Hx Pacemaker: No Hx Asthma: No Hx COPD: No Hx Diabetes: Yes Hx Cancer: No Hx Gastrointestinal Problems: No - etoh abuse Hx Dialysis: No History Of Psychiatric Problem: Yes - ETOH, HIV Hx Neurological Problems: No Hx Cerebrovascular Accident: Yes Hx Seizures: Yes Review of Systems All Other Systems: limited Physical Exam Vital Signs Date Time Temp Pulse Resp B/P (MAP) Pulse Ox O2 Delivery O2 Flow Rate FiO2 04/12/19 22:26 98.4 90 18 130/90 (103) 98 Room Air Sp02 EP Interpretation: reviewed, normal General Appearance: no apparent distress, alert, non-toxic, other - Disheveled , Chronically Ill Head: normocephalic, atraumatic Eyes: bilateral eye PERRL, bilateral eye Scleral Injection ENT: moist mucus membranes Neck: full range of motion, supple Respiratory: lungs clear, normal breath sounds Cardiovascular #1: regular rate, rhythm Cardiovascular #2: 2+ radial (R) Gastrointestinal: normal inspection, normal bowel sounds, non tender, no mass, non-distended Musculoskeletal: back normal, normal range of motion Neurologic: alert, motor strength/tone normal, sensory intact, oriented - X2 Psychiatric: other - intoxicated Skin: other - venous stasis ulcers Medical Decision Making Homeless Attestation I, The treating physician Dr. Montemayor, have assessed and agree that patient is medically stable for discharge to an outpatient disposition. Diagnostic Impression: Primary Impression: Alcohol Intoxication Additional Impression: Non-cardiac chest pain ER Course Patient presents with alcohol intoxication and not taking care of himself. Differential includes acute alcohol intoxication, electrolyte imbalance, occult infection, where he is encephalopathy, myocardial infarction amongst others. The patient will be evaluated with EKG, chest x-ray and labs. The patient will receive IV thiamine and IV hydration. Bacitracin will be applied to his skin ulcers. EKG NSR normal. CXR no infiltrates. Labs with low WBC and anemia. Minimal hyponatremia. Elevated BAL. Patient c/o chest pain and nausea. Mylanta, pepcid and zofrran given. Patient is improved with treatment. There is no medical emergency at this time. Aside from the alcohol abuse and chronic problems the patient is stable for outpatient observation and treatment. Laboratory Tests Test 04/12/19 20:18 White Blood Count 3.9 K/UL (4.8-10.8) L Red Blood Count 4.07 M/UL (4.70-6.10) L Hemoglobin 11.2 G/DL (14.2-18.0) L Hematocrit 34.4 % (42.0-52.0) L Mean Corpuscular Volume 85 FL (80-99) Mean Corpuscular Hemoglobin 27.6 PG (27.0-31.0) Mean Corpuscular Hemoglobin Concent 32.6 G/DL (32.0-36.0) Red Cell Distribution Width 15.9 % (11.6-14.8) H Platelet Count 109 K/UL (150-450) L Mean Platelet Volume 5.5 FL (6.5-10.1) L Neutrophils (%) (Auto) 35.8 % (45.0-75.0) L Lymphocytes (%) (Auto) 43.4 % (20.0-45.0) Monocytes (%) (Auto) 17.8 % (1.0-10.0) H Eosinophils (%) (Auto) 2.5 % (0.0-3.0) Basophils (%) (Auto) 0.5 % (0.0-2.0) Prothrombin Time 12.0 SEC (9.30-11.50) H Prothrombin Time INR 1.1 (0.9-1.1) PTT 28 SEC (23-33) Urine Color Pale yellow Urine Appearance Clear Urine pH 7 (4.5-8.0) Urine Specific [place] 1.005 (1.005-1.035) Urine Protein Negative (NEGATIVE) Urine Glucose (UA) Negative (NEGATIVE) Urine Ketones Negative (NEGATIVE) Urine Blood 3+ (NEGATIVE) H Urine Nitrite Negative (NEGATIVE) Urine Bilirubin Negative (NEGATIVE) Urine Urobilinogen Normal MG/DL (0.0-1.0) Urine Leukocyte Esterase Negative (NEGATIVE) Urine RBC 2-4 /HPF (0 - 0) H Urine WBC 0 /HPF (0 - 0) Urine Squamous Epithelial Cells None /LPF (NONE/OCC) Urine Bacteria None /HPF (NONE) Sodium Level 128 MMOL/L (136-145) L Potassium Level 3.8 MMOL/L (3.5-5.1) Chloride Level 93 MMOL/L (98-107) L Carbon Dioxide Level 27 MMOL/L (21-32) Anion Gap 8 mmol/L (5-15) Blood Urea Nitrogen 5 mg/dL (7-18) L Creatinine 0.6 MG/DL (0.55-1.30) Estimate Glomerular Filtration Rate > 60 mL/min (>60) Glucose Level 94 MG/DL (74-106) Lactic Acid Level 1.60 mmol/L (0.4-2.0) Calcium Level 8.5 MG/DL (8.5-10.1) Phosphorus Level 3.6 MG/DL (2.5-4.9) Magnesium Level 1.8 MG/DL (1.8-2.4) Total Bilirubin 1.0 MG/DL (0.2-1.0) Aspartate Amino Transferase (AST) 144 U/L (15-37) H Alanine Aminotransferase (ALT) 55 U/L (12-78) Alkaline Phosphatase 102 U/L (46-116) Total Creatine Kinase 630 U/L (26-308) H Troponin I 0.001 ng/mL (0.000-0.056) Total Protein 8.6 G/DL (6.4-8.2) H Albumin 3.5 G/DL (3.4-5.0) Globulin 5.1 g/dL Albumin/Globulin Ratio 0.7 (1.0-2.7) L Lipase 160 U/L (73-393) Salicylates Level 0.8 ug/mL (2.8-20) L Urine Opiates Screen Negative (NEGATIVE) Acetaminophen Level < 2 MCG/ML (10-30) L Urine Barbiturates Screen Negative (NEGATIVE) Phencyclidine (PCP) Screen Negative (NEGATIVE) Urine Amphetamines Screen Negative (NEGATIVE) Urine Benzodiazepines Screen Negative (NEGATIVE) Urine Cocaine Screen Negative (NEGATIVE) Urine Marijuana (THC) Screen Negative (NEGATIVE) Serum Alcohol 286 mg/dL EKG Diagnostic Results Rate: normal Rhythm: NSR ST Segments: no acute changes Rhythm Strip Diag. Results EP Interpretation: yes Rhythm: NSR, no PVC's, no ectopy Chest X-Ray Diagnostic Results Chest X-Ray Diagnostic Results : Chest X-Ray Ordered: Yes # of Views/Limited/Complete: 1 View Indication: Chest Pain EP Interpretation: Yes Interpretation: no consolidation, no effusion, no pneumothorax Impression: No acute disease Electronically Signed by: Electronically signed by Benny Montemayor MD Last Vital Signs Date Time Temp Pulse Resp B/P (MAP) Pulse Ox O2 Delivery O2 Flow Rate FiO2 04/13/19 06:00 98.8 92 22 138/85 100 Room Air Status: improved Disposition: HOME, SELF-CARE Condition: Improved Scripts Famotidine (PEPCID AC) 20 Mg Tablet 20 MG PO DAILY, #30 TAB Prov: Benny Montemayor MD 04/13/19 Bacitracin (Bacitracin) 28.4 Gm Oint...g. 1 APPLIC TOPIC BID, #30 GM Prov: Benny Montemayor MD 04/13/19 Benny Montemayor MD Apr 12, 2019 23:00
[2019-04-12 23:05] LABS: APPEARANCE,URINE CLEAR; BILIRUBIN, URINE NEGATIVE (NEGATIVE); COLOR,URINE PALE YELLOW; GLUCOSE, URINE (UA) NEGATIVE (NEGATIVE); KETONES,URINE NEGATIVE (NEGATIVE); LEUKOCYTE ESTERASE ,URINE NEGATIVE (NEGATIVE); NITRITE,URINE NEGATIVE (NEGATIVE); PH,URINE 7 (4.5-8.0); PROTEIN,URINE NEGATIVE (NEGATIVE); UROBILINOGEN,URINE NORMAL MG/DL (0.0-1.0)
[2019-04-12 23:07] LABS: BASOPHILS % (AUTO) 0.5 % (0.0-2.0); EOSINOPHILS % (AUTO) 2.5 % (0.0-3.0); HEMATOCRIT 34.4 % (42.0-52.0); HEMOGLOBIN 11.2 G/DL (14.2-18.0); LYMPHOCYTES % (AUTO) 43.4 % (20.0-45.0); MEAN CORPUSCULAR VOLUME 85 FL (80-99); MONOCYTES % (AUTO) 17.8 % (1.0-10.0); NEUTROPHILS % (AUTO) 35.8 % (45.0-75.0); PLATELET COUNT 109 K/UL (150-450); RED BLOOD COUNT 4.07 M/UL (4.70-6.10); RED CELL DISTRIBUTION WIDTH 15.9 % (11.6-14.8); WHITE BLOOD COUNT 3.9 K/UL (4.8-10.8)
--- NOTE | 2019-04-12 23:10 | NUR ---
ED Nurse Note: seizure precaution discontinued by ermd.
[2019-04-12 23:18] LABS: ANION GAP 8 mmol/L (5-15); BLOOD UREA NITROGEN 5 mg/dL (7-18); CALCIUM 8.5 MG/DL (8.5-10.1); CARBON DIOXIDE 27 MMOL/L (21-32); CHLORIDE 93 MMOL/L (98-107); CREATININE 0.6 MG/DL (0.55-1.30); INR 1.1 (0.9-1.1); POTASSIUM 3.8 MMOL/L (3.5-5.1); SODIUM 128 MMOL/L (136-145)
[2019-04-12] MEDS ORDERED: Bacitracin Oint UD TOPIC ONE ×2 (23:18→23:30)
[2019-04-12 23:22] LABS: PHOSPHORUS 3.6 MG/DL (2.5-4.9)
[2019-04-12 23:36] LABS: ALANINE AMINOTRANSFERASE 55 U/L (12-78); ALBUMIN 3.5 G/DL (3.4-5.0); ALBUMIN/GLOBULIN RATIO 0.7 (1.0-2.7); ALKALINE PHOSPHATASE 102 U/L (46-116); ASPARTATE AMINO TRANSFERASE 144 U/L (15-37); CREATINE KINASE 630 U/L (26-308)
[2019-04-12 23:43] VITALS: BP 130/90
[2019-04-13 00:26] VITALS: BP 114/77
--- NOTE | 2019-04-13 01:18 | NUR ---
ED Nurse Note: pt in bed sleeping, vss. will continue to monitor and await further instructions
[2019-04-13 02:23] VITALS: BP 127/81
--- NOTE | 2019-04-13 02:26 | Diagnostic Imaging Report ---
EXAM: XR Chest, 1 View CLINICAL HISTORY: ALOC TECHNIQUE: Frontal view of the chest. COMPARISON: 01/15/18 FINDINGS: Lungs: See below. Pleural space: Unremarkable. No pneumothorax. Heart: Prominent cardiovascular silhouette accentuated by low lung volume. Mediastinum: Unremarkable. Bones/joints: Unremarkable. Vasculature: Mildly tortuous thoracic aorta. Prominent central vasculature may partly reflect low lung volume. Possible mild congestion. IMPRESSION: 1. Low lung volume. 2. Mild vascular congestion 3. Mild cardiomegaly
--- NOTE | 2019-04-13 02:53 | NUR ---
ED Nurse Note: pt still asleep in bed. extra blanket provided. will continue to monitor
[2019-04-13 04:28] VITALS: BP 132/88
--- NOTE | 2019-04-13 04:29 | NUR ---
ED Nurse Note: pt is still sleeping, no signs of changes or distress.
[2019-04-13] MEDS ORDERED: Mylanta II UD 30ml ORAL ONE (04:45)
[2019-04-13] MEDS ORDERED: BACITRACIN15 GM TOPIC (05:51)
[2019-04-13] MEDS ORDERED: PEPCID AC20 M2 PO (05:51)
--- NOTE | 2019-04-13 05:59 | NUR ---
ER DISCHARGE NOTE: Patient is cleared to be discharged per ERMD, pt is aox4, on room air, with stable vital signs. pt was given dc and prescription instructions, pt was able to verbalize understanding, pt id band and iv site removed without complications. pt is able to ambulate with steady gait. pt took all belongings. pt refused to take his belongings that were soiled. pt was offered shoes but refused it. pt did accept pants, shirt, jacket.
--- NOTE | 2019-04-13 05:59 | NUR ---
Manny cuellar in EDM - 04/13/19 at 0559 by TOMMY ED Note:
[2019-04-13 06:00] VITALS: BP 138/85
--- NOTE | 2019-04-13 21:45 | Cardiology Report ---
APPROVED REPORT EKG Measurement Heart [id number] Normal sinus rhythm Low voltage QRS Cannot rule out Anterior infarct, age undetermined Abnormal ECG
== END 2019-04-13 06:00 | disposition home or self-care (01) ==
LOC: EDBD 22:28 → EMR 23:01
DX: F10.129 Alcohol abuse with intoxication, unspecified (principal); R07.9 Chest pain, unspecified; Z88.6 Allergy status to analgesic agent; I10 Essential (primary) hypertension; E11.9 Type 2 diabetes mellitus without complications; B20 Human immunodeficiency virus [HIV] disease; Z86.73 Personal history of transient ischemic attack (TIA), and cerebral infarction without residual deficits; G40.909 Epilepsy, unspecified, not intractable, without status epilepticus; E87.1 Hypo-osmolality and hyponatremia
CPT/HCPCS: 36415; 71045; 80053; 80307; 80329; 81003; 82550; 83605; 83690; 83735; 84100; 84484; 85025; 85610; 85730; 93005; 96361; 96365; 96375; 99284; J2405; S0028

== ENCOUNTER 2019-06-06 14:37 | Emergency (ER) | payer OTHER ==
[~2019-06-06] VITALS: Ht 188 cm; Wt 84.4 kg
[~2019-06-06 14:37] MED LIST changes: +BACITRACIN15 GM TOPIC; +PEPCID AC20 M2 PO
--- NOTE | 2019-06-06 14:45 | NUR ---
ED Nurse Note: Patient brought in by ambulance from street. bystander called ambulance per EMS patient has been laying there for almost a day, patient reports leg pain, and chest pain on the substernal area for 9/10 chest pain, non-radiating. 12 lead ekg by ems was done on the scene.
--- NOTE | 2019-06-06 15:04 | Emergency Room Report ---
History of Present Illness General Chief Complaint: General Complaint Source: Medical Record (Dioni Fajardo MD) Present Illness HPI Patient is a 53-year-old male who presents for increased anxiety. Patient reports having been lying on the street. He denies drinking any alcohol. He reports having some irregular heartbeats in the past. He states that he was asking somebody for a sandwich and he subsequently called an ambulance and told me need to go to the hospital. Patient had frequent ER visits in the past. He reportedly was recently released from [facility]. Patient reports having some chronic discomfort to his lower extremities. (Dioni Fajardo MD) Allergies: Coded Allergies: ACETAMINOPHEN (Verified Allergy, Unknown, 05/23/17) ASPIRIN (Unverified Allergy, Unknown, 06/06/19) HALOPERIDOL (Unverified Allergy, Unknown, 12/19/14) Patient History Past Medical History: see triage record Reviewed Nursing Documentation: PMH: Agreed; PSxH: Agreed (Dioni Fajardo MD) Nursing Documentation-PMH Past Medical History: No History, Except For Hx Cardiac Problems: Yes Hx Hypertension: Yes Hx Pacemaker: No Hx Asthma: No Hx COPD: No Hx Diabetes: Yes Hx Cancer: No Hx Dialysis: No Hx Neurological Problems: No Hx Cerebrovascular Accident: Yes Hx Seizures: Yes (Dioni Fajardo MD) Review of Systems All Other Systems: limited - by poor historian (Dioni Fajardo MD) Physical Exam Vital Signs Date Time Temp Pulse Resp B/P (MAP) Pulse Ox O2 Delivery O2 Flow Rate FiO2 06/06/19 14:37 98.8 91 18 90/60 (70) 99 Room Air General Appearance: alert, obese, Chronically Ill Eyes: bilateral eye other - nystagmus Neck: limited range of motion Respiratory: chest non-tender, lungs clear Cardiovascular #1: normal peripheral pulses, regular rate, rhythm, edema - bilateral lower extremity rash, flaky Gastrointestinal: normal inspection, non tender, soft Musculoskeletal: decreased range of motion Neurologic: normal inspection, alert, oriented x3 Psychiatric: normal inspection, judgement/insight normal Skin: other - scaly rash diffusely to bilateral lower extremities (Dioni Fajardo MD) Medical Decision Making Diagnostic Impression: Primary Impression: Alcohol abuse with intoxication ER Course Patient presented for generalized weakness. Differential diagnosis include is not limited to electrolyte abnormality, hypokalemia, alcohol intoxication, among others. Because of complexity of patient's case laboratory testing and imaging studies were orderPatient's laboratory testing was unremarkable. Patient was given IV fluids as well as IV thiamine due to chronic alcohol abuse. Patient appears to be at his baseline mental status. Patient has some chronic lower extremity. he does not appear to have any active infection at this time. Patient was endorsed to Dr. Scanlon pending further sobering and likely discharge when more awake and alert Labs Test 06/06/19 15:30 White Blood Count 3.8 K/UL (4.8-10.8) Red Blood Count 3.97 M/UL (4.70-6.10) Hemoglobin 11.2 G/DL (14.2-18.0) Hematocrit 34.5 % (42.0-52.0) Mean Corpuscular Volume 87 FL (80-99) Mean Corpuscular Hemoglobin 28.2 PG (27.0-31.0) Mean Corpuscular Hemoglobin Concent 32.4 G/DL (32.0-36.0) Red Cell Distribution Width 16.3 % (11.6-14.8) Platelet Count 168 K/UL (150-450) Mean Platelet Volume 5.1 FL (6.5-10.1) Neutrophils (%) (Auto) 38.3 % (45.0-75.0) Lymphocytes (%) (Auto) 42.3 % (20.0-45.0) Monocytes (%) (Auto) 13.8 % (1.0-10.0) Eosinophils (%) (Auto) 4.5 % (0.0-3.0) Basophils (%) (Auto) 1.1 % (0.0-2.0) Urine Color Yellow Urine Appearance Clear Urine pH 6.5 (4.5-8.0) Urine Specific [place] 1.005 (1.005-1.035) Urine Protein Negative (NEGATIVE) Urine Glucose (UA) Negative (NEGATIVE) Urine Ketones Negative (NEGATIVE) Urine Blood 1+ (NEGATIVE) Urine Nitrite Negative (NEGATIVE) Urine Bilirubin Negative (NEGATIVE) Urine Urobilinogen 1 MG/DL (0.0-1.0) Urine Leukocyte Esterase Negative (NEGATIVE) Urine RBC 0-2 /HPF (0 - 0) Urine WBC 0 /HPF (0 - 0) Urine Squamous Epithelial Cells Occasional /LPF Urine Bacteria None /HPF (NONE) Sodium Level 141 MMOL/L (136-145) Potassium Level 3.7 MMOL/L (3.5-5.1) Chloride Level 103 MMOL/L (98-107) Carbon Dioxide Level 26 MMOL/L (21-32) Anion Gap 12 mmol/L (5-15) Blood Urea Nitrogen 2 mg/dL (7-18) Creatinine 0.5 MG/DL (0.55-1.30) Estimat Glomerular Filtration Rate > 60 mL/min (>60) Glucose Level 87 MG/DL (74-106) Calcium Level 8.2 MG/DL (8.5-10.1) (Dioni Fajardo MD) ER Course Signed out to me. He presents with alcohol intoxication and leg pain. This is a chronic issue. He slept through the night. Now awake. He does not have his cane with him. One will be given to him. He does not want to go to a longterm. He has a spot near [facility] that he likes. No criteria for 5150. (Sam Scanlon MD) Last Vital Signs Date Time Temp Pulse Resp B/P (MAP) Pulse Ox O2 Delivery O2 Flow Rate FiO2 06/06/19 14:37 98.8 91 18 90/60 (70) 99 Room Air Status: improved (Dioni Fajardo MD) Disposition: HOME, SELF-CARE Condition: Stable Referrals: [facility] (PCP) Additional Instructions: Follow-up with your doctor in 7 days. Return if worse. Abstain from alcohol. Dioni Fajardo MD Jun 06, 2019 15:04 Sam Scanlon MD Jun 07, 2019 01:32
[2019-06-06 15:42] VITALS: BP 105/58
[2019-06-06] MEDS ORDERED: Thiamine HCl 100 MG in D5W 55 ML IVPB ONE (15:45)
--- NOTE | 2019-06-06 15:50 | NUR ---
ED Nurse Note: patient provided with sandwiches as ordered.
[2019-06-06 15:56] LABS: BASOPHILS % (AUTO) 1.1 % (0.0-2.0); EOSINOPHILS % (AUTO) 4.5 % (0.0-3.0); HEMATOCRIT 34.5 % (42.0-52.0); HEMOGLOBIN 11.2 G/DL (14.2-18.0); LYMPHOCYTES % (AUTO) 42.3 % (20.0-45.0); MEAN CORPUSCULAR VOLUME 87 FL (80-99); MONOCYTES % (AUTO) 13.8 % (1.0-10.0); NEUTROPHILS % (AUTO) 38.3 % (45.0-75.0); PLATELET COUNT 168 K/UL (150-450); RED BLOOD COUNT 3.97 M/UL (4.70-6.10); RED CELL DISTRIBUTION WIDTH 16.3 % (11.6-14.8); WHITE BLOOD COUNT 3.8 K/UL (4.8-10.8)
[2019-06-06 15:57] LABS: APPEARANCE,URINE CLEAR; BILIRUBIN, URINE NEGATIVE (NEGATIVE); GLUCOSE, URINE (UA) NEGATIVE (NEGATIVE); KETONES,URINE NEGATIVE (NEGATIVE); LEUKOCYTE ESTERASE ,URINE NEGATIVE (NEGATIVE); NITRITE,URINE NEGATIVE (NEGATIVE); PH,URINE 6.5 (4.5-8.0); PROTEIN,URINE NEGATIVE (NEGATIVE); UROBILINOGEN,URINE 1 MG/DL (0.0-1.0)
[2019-06-06 15:58] LABS: COLOR,URINE YELLOW
[2019-06-06 16:07] LABS: ANION GAP 12 mmol/L (5-15); BLOOD UREA NITROGEN 2 mg/dL (7-18); CALCIUM 8.2 MG/DL (8.5-10.1); CARBON DIOXIDE 26 MMOL/L (21-32); CHLORIDE 103 MMOL/L (98-107); CREATININE 0.5 MG/DL (0.55-1.30); POTASSIUM 3.7 MMOL/L (3.5-5.1); SODIUM 141 MMOL/L (136-145)
[2019-06-06 19:16] VITALS: BP 97/66
--- NOTE | 2019-06-06 19:17 | NUR ---
HAND-OFF: Report given to Lm Manzanares RN . patient stable in bed
--- NOTE | 2019-06-06 19:19 | NUR ---
ED Nurse Note: received pt from marva singleton. patient sleeping with nad. vss. ao4.
--- NOTE | 2019-06-06 21:00 | NUR ---
ED Nurse Note: PATIENT SLEEPING WITH NAD.
[2019-06-06 22:00] VITALS: BP 105/53
--- NOTE | 2019-06-06 22:30 | NUR ---
HAND-OFF: Report given to EVELIN. PATIENT MOVED TO ORTHO PER ERMD. PT IN STABLE CONDITION. AO4. NAD.
--- NOTE | 2019-06-07 01:00 | NUR ---
ED Nurse Note: Pt set up at bedside for self bath.
[2019-06-07] MEDS ORDERED: Mylanta II UD 30ml ORAL ONE (01:15)
[2019-06-07 01:43] VITALS: BP 110/58
--- NOTE | 2019-06-07 01:44 | NUR ---
ER Nurse Note: Pt awake, stable, no signs of distress, RA. Pt expressed pain; ERMD ordered meds; pt toelrated well. SLIV RT FA; patent. All requests met per pt orders. Urinal provided. Pt used wheelchair to restroom, unsteady gait. Linens provided. All safety measures met; will continue to montior.
[2019-06-07 06:30] VITALS: BP 138/82
--- NOTE | 2019-06-07 06:30 | NUR ---
ER Nurse Note: Homeless discharge competed. Pt seen, treated, medically cleared for discharge by ERMD. Discharge instuctions given with repeat verbalization by pt. Emphasized to follow up with primay care provider and provided respources for centers such as AA and NA. All orders completed per ERMD orders. Pt a&ox4, VSS, no signs of distress. ID band removed. All questions answered per pt's questions. Pt left with all belongings, pt was provided bus tokens and stated he was going to a safe location, juice and milk provided; refused food. Pt was provided clothing for the weather. Pt was provided with a walker.
== END 2019-06-07 06:30 | disposition home or self-care (01) ==
LOC: EDBD 14:37 → EMR 14:56
DX: F10.129 Alcohol abuse with intoxication, unspecified (principal); Z86.73 Personal history of transient ischemic attack (TIA), and cerebral infarction without residual deficits; I10 Essential (primary) hypertension; E11.9 Type 2 diabetes mellitus without complications; Z88.6 Allergy status to analgesic agent; Z88.8 Allergy status to other drugs, medicaments and biological substances; M79.605 Pain in left leg; M79.604 Pain in right leg; Z59.0 Homelessness
CPT/HCPCS: 36415; 80048; 81001; 85025; 96361; 96365; 99284

== ENCOUNTER 2019-11-24 23:24 | Emergency (ER) | payer OTHER ==
[~2019-11-24] VITALS: Ht 170.2 cm; Wt 97.5 kg
[2019-11-24 23:25] VITALS: BP 126/85
--- NOTE | 2019-11-24 23:25 | NUR ---
ED Nurse Note: Pt BIBA CO chest pain, denies radiating pain. Pt reports pain 10/10. Pt aaox 2-3 with confusion and altered mental status. Pt rambles and speaks to himself. Pt in bed, awaiting ERMD at bedside. VSS except for HR 100. Pt states allergy to aspirin and tylenol and reports taking nitroglycerin since 12 years of age. Awaiting ERMD at bedside
--- NOTE | 2019-11-24 23:40 | NUR ---
ED Nurse Note: ermd AT BEDSIDE
--- NOTE | 2019-11-24 23:59 | NUR ---
ED Nurse Note: Pt sleeping in bed. VSS, no s/s of distress noted.
[2019-11-25 06:00] VITALS: BP 130/89
--- NOTE | 2019-11-25 06:00 | NUR ---
ER DISCHARGE NOTE: Patient is cleared to be discharged home per ERMD, pt is aox4, on room air, with stable vital signs. pt was given dc and prescription instructions, pt was able to verbalize understanding, pt id band removed. pt is able to use wheelchair to leave facility. pt took all belongings. Pt argued with staff stating that he was not ready to be discharged and believes that he needs additional medical care. ERMD notified and assessed pt; pt cleared for discharge. Pt was removed to waiting room and continued to shout at staff. Security notified
--- NOTE | 2019-11-25 06:08 | Emergency Room Report ---
History of Present Illness General Chief Complaint: Chest Pain Source: Patient Present Illness HPI This is a well-known patient to our ER and other ERs. He has a history of alcohol abuse and presents with alcohol desiccation. Also complaining of abdominal pain chest pain and generalized body pain. Pain is 10 out of 10. He said he has nausea and vomiting. No diarrhea. No fever chills. Nothing made it better. Nothing made it worse. He was at a another hospital recently yesterday for the same. Allergies: Coded Allergies: ACETAMINOPHEN (Verified Allergy, Unknown, 05/23/17) ASPIRIN (Unverified Allergy, Unknown, 06/06/19) HALOPERIDOL (Unverified Allergy, Unknown, 12/19/14) Patient History Past Medical History: see triage record, old chart reviewed Past Surgical History: other Pertinent Family History: none Social History: Reports: alcohol use Immunizations: other Reviewed Nursing Documentation: PMH: Agreed; PSxH: Agreed Nursing Documentation-PMH Hx Hypertension: Yes Hx Pacemaker: No Hx Asthma: No Hx COPD: No Hx Diabetes: Yes Hx Cancer: No Hx Dialysis: No Hx Neurological Problems: No Hx Cerebrovascular Accident: Yes Hx Seizures: Yes Review of Systems Eye: Denies: eye pain, blurred vision ENT: Denies: ear pain, nose congestion, throat swelling Respiratory: Denies: cough, shortness of breath Cardiovascular: Reports: chest pain; Denies: palpitations Gastrointestinal: Reports: abdominal pain; Denies: diarrhea, nausea, vomiting Musculoskeletal: Reports: muscle pain; Denies: back pain, joint pain Skin: Denies: rash Neurological: Denies: headache, numbness Endocrine: Denies: increased thirst, increased urine Hematologic/Lymphatic: Denies: easy bruising All Other Systems: negative except mentioned in HPI Physical Exam Vital Signs Date Time Temp Pulse Resp B/P (MAP) Pulse Ox O2 Delivery O2 Flow Rate FiO2 11/24/19 23:19 97.5 100 17 126/85 (99) 96 Room Air Vitals normal Sp02 EP Interpretation: reviewed, normal General Appearance: well appearing, no apparent distress, other - Very intoxicated Head: normocephalic, atraumatic Eyes: bilateral eye PERRL, bilateral eye EOMI ENT: hearing grossly normal, normal pharynx Neck: full range of motion, supple, no meningismus Respiratory: chest non-tender, lungs clear, normal breath sounds Cardiovascular #1: regular rate, rhythm, no murmur Gastrointestinal: normal bowel sounds, non tender, no mass, no organomegaly, no bruit, non-distended Musculoskeletal: back normal, normal range of motion, gait/station normal Psychiatric: mood/affect normal Medical Decision Making Diagnostic Impression: Primary Impression: Acute alcoholic intoxication Qualified Codes: F10.920 - Alcohol use, unspecified with intoxication, uncomplicated Additional Impression: Generalized aches and pains ER Course Patient presents with generalized body pain which is chronic in nature. He has alcohol intoxication. No suicidal thoughts homicidal thought. No criteria for 5150. Will discharge home. Still has armbands from recent hospitalization from other ER. Last Vital Signs Date Time Temp Pulse Resp B/P (MAP) Pulse Ox O2 Delivery O2 Flow Rate FiO2 11/24/19 23:19 97.5 100 17 126/85 (99) 96 Room Air Status: improved Disposition: HOME, SELF-CARE Condition: Stable Scripts No Active Prescriptions or Reported Meds Patient Instructions: Nonspecific Chest Pain Additional Instructions: Abstain from alcohol. Go to rehab. Follow-up with in 7 days. Return if symptoms worsen. Sam Scanlon MD Nov 25, 2019 06:08
== END 2019-11-25 06:00 | disposition home or self-care (01) ==
LOC: EDBD 23:24 → EMR 23:42
DX: F10.129 Alcohol abuse with intoxication, unspecified (principal); I10 Essential (primary) hypertension; R52 Pain, unspecified; Z88.6 Allergy status to analgesic agent; E11.9 Type 2 diabetes mellitus without complications; Z86.73 Personal history of transient ischemic attack (TIA), and cerebral infarction without residual deficits; G40.909 Epilepsy, unspecified, not intractable, without status epilepticus
CPT/HCPCS: 99281

== ENCOUNTER 2020-05-19 03:57 | Emergency (ER) | payer OTHER ==
[~2020-05-19] VITALS: Ht 170.2 cm; Wt 90.7 kg
--- NOTE | 2020-05-19 04:02 | NUR ---
ED Nurse Note: pt brought into ED via EMS arrival from the streets c/o "total body pain" x 4 months. pt states that he does not know who called ambulance, but that he has "greater than 10/10" pain. pt presents with a wheelchair, unkempt, with poor hygeine. no other complaints at this time, denies alcohol or drug use
[2020-05-19 04:04] VITALS: BP 109/69
--- NOTE | 2020-05-19 04:27 | Emergency Room Report ---
History of Present Illness General Chief Complaint: Pain Source: Medical Record, EMS Present Illness HPI Is a 54-year-old homeless male who is an alcoholic. He is well-known to me. He presents with chief complaint of alcohol intoxication. Patient was very intoxicated and was lying down the street. Bystander called 911. Patient is not cooperative. History limited because of his intoxication. There is no evidence of any trauma. Allergies: Coded Allergies: ACETAMINOPHEN (Verified Allergy, Unknown, 05/23/17) ASPIRIN (Unverified Allergy, Unknown, 06/06/19) HALOPERIDOL (Unverified Allergy, Unknown, 12/19/14) COVID-19 Screening Contact w/high risk pt: No Experienced COVID-19 symptoms?: No COVID-19 Testing performed SURGICAL TERRITORY MANAGER: No Patient History Past Medical History: see triage record, old chart reviewed Past Surgical History: other Pertinent Family History: none Social History: Reports: alcohol use Immunizations: other Reviewed Nursing Documentation: PMH: Agreed; PSxH: Agreed Nursing Documentation-PMH Hx Hypertension: Yes Hx Pacemaker: No Hx Asthma: No Hx COPD: No Hx Diabetes: Yes Hx Cancer: No Hx Dialysis: No Hx Neurological Problems: No Hx Cerebrovascular Accident: Yes Hx Seizures: Yes Review of Systems All Other Systems: limited - Secondary to intoxication Physical Exam Vital Signs Date Time Temp Pulse Resp B/P (MAP) Pulse Ox O2 Delivery O2 Flow Rate FiO2 05/19/20 03:58 81 17 109/69 (82) 97 Room Air Vitals normal Sp02 EP Interpretation: reviewed, normal General Appearance: well appearing, no apparent distress, other - Very intoxicated. Malodorous Head: normocephalic, atraumatic Eyes: bilateral eye PERRL, bilateral eye EOMI ENT: hearing grossly normal, normal pharynx Neck: full range of motion, supple, no meningismus Respiratory: chest non-tender, lungs clear, normal breath sounds Cardiovascular #1: regular rate, rhythm, no murmur Gastrointestinal: normal bowel sounds, non tender, no mass, no organomegaly, no bruit, non-distended Musculoskeletal: back normal, normal range of motion Neurologic: grossly normal Medical Decision Making Diagnostic Impression: Primary Impression: Acute alcoholic intoxication Qualified Codes: F10.920 - Alcohol use, unspecified with intoxication, uncomplicated ER Course Patient presents with alcohol intoxication. Will observe until clinical sobriety. He is well-known to me. Usually when he is more sober, he would complained of generalized body pain. Patient does not want to go to a senior care. Will discharge in the morning. Last Vital Signs Date Time Temp Pulse Resp B/P (MAP) Pulse Ox O2 Delivery O2 Flow Rate FiO2 05/19/20 04:04 94 17 109/69 97 Room Air Status: improved Disposition: HOME, SELF-CARE Condition: Stable Scripts No Active Prescriptions or Reported Meds Referrals: [facility] (PCP) Additional Instructions: Abstain from drinking to excess. Follow-up with your doctor in 7 days. Return if worse. Sam Scanlon MD May 19, 2020 04:27
--- NOTE | 2020-05-19 04:35 | NUR ---
ED Nurse Note: pt reports pain but is sleeping in bed, appears to be snoring, no acute distress is noted at this time
[2020-05-19 05:00] VITALS: BP 109/69
--- NOTE | 2020-05-19 05:00 | NUR ---
ER DISCHARGE NOTE: Patient is cleared to be discharged per ERMD, pt is aox4, on room air, with stable vital signs. pt was given dc and prescription instructions, pt was able to verbalize understanding, pt id band removed without complications. pt left with all belongings in wheelchair Addendum: 05/19/20 at 0684 by ARMANDO pt left without paperwork, refused to sign d/c papers
== END 2020-05-19 05:00 | disposition home or self-care (01) ==
LOC: EDBD 03:57 → EMR 04:18
DX: F10.129 Alcohol abuse with intoxication, unspecified (principal); Z59.0 Homelessness; Z88.6 Allergy status to analgesic agent; I10 Essential (primary) hypertension; E11.9 Type 2 diabetes mellitus without complications; G40.909 Epilepsy, unspecified, not intractable, without status epilepticus; Z86.73 Personal history of transient ischemic attack (TIA), and cerebral infarction without residual deficits
CPT/HCPCS: 99281